=== PATIENT | male | born 1990 | race Two or more races ===

== ENCOUNTER 2018-04-23 09:17 | Emergency (ER) | payer SELFPAY ==
[~2018-04-23] VITALS: Ht 182.9 cm; Wt 142.9 kg
--- NOTE | 2018-04-23 09:20 | NUR ---
SHALOM FROM HOME , CC OF DYSURIA SINCE SATURDAY, HEMATURIA THIS AM WITH ABDOMINAL PAIN LLQ 3/10 MILD PAIN , WILL CONTINUE TO MONITOR
--- NOTE | 2018-04-23 09:44 | NUR ---
URINE SPECIMEN LABELED OBTAINED AND SENT TO LAB
[2018-04-23 09:50] LABS: APPEARANCE,URINE Cloudy (CLEAR); BILIRUBIN,URINE Negative (NEGATIVE); BLOOD, URINE Large Ery/uL (NEGATIVE); KETONES,URINE Negative (NEGATIVE); LEUKOCYTE ESTERASE ,URINE Small (NEGATIVE); NITRITE, URINE Negative (NEGATIVE); PH,URINE 5.5 (5.0-8.0); PROTEIN,URINE Trace mg/dl (NEGATIVE); UGLUCOSE Negative (NEGATIVE); UROBILINOGEN,URINE 0.2 EU/dL (0.2)
[2018-04-23] MEDS ORDERED: ACETAMINOPHEN ES 500 MG TABLET ONE (09:53)
[2018-04-23] MEDS: ACETAMINOPHEN ES 500 MG TABLET PO ONE (09:55)
[2018-04-23 09:56] LABS: COLOR,URINE Dark Yellow (YELLOW)
[2018-04-23 10:00] LABS: WBC,URINE 15-20 /HPF (0-3)
[2018-04-23 10:01] LABS: BACTERIA,URINE None seen /HPF (None Seen); RBC,URINE 80-100 /HPF (0-2); SQUAMOUS EPITHELIAL CELL,UR Few /HPF (None Seen)
[2018-04-23 10:07] LABS: BASOPHILS % (AUTO) 0.5 % (0.0-2.0); EOSINOPHILS % (AUTO) 0.8 % (0.0-6.0); HEMATOCRIT 42 % (39-51); HEMOGLOBIN 14.5 g/dL (13.5-17.5); LYMPHOCYTES # (AUTO) 1.5 /CMM (0.8-4.8); LYMPHOCYTES % (AUTO) 16.5 % (20.0-44.0); MEAN CORPUSCULAR HEMOGLOBIN 30 PG (26.0-33.0); MEAN CORPUSCULAR HGB CONC 35 g/dl (31.0-36.0); MEAN CORPUSCULAR VOLUME 86 fL (80-96); MONOCYTES # (AUTO) 0.4 /CMM (0.1-1.30); MONOCYTES % (AUTO) 4.1 % (2.0-12.0); NEUTROPHILS # (AUTO) 7.2 /CMM (1.8-8.9); NEUTROPHILS % (AUTO) 78.1 % (43.0-81.0); PLATELET COUNT (AUTO) 236 /CMM (150-450); RDW COEFFICIENT OF VARIATION 13.9 (11.5-15.0); RED BLOOD CELL COUNT(AUTO) 4.89 MIL/uL (4.5-6.0); WHITE BLOOD COUNT (AUTO) 9.3 K/uL (4.3-11.0)
[2018-04-23 10:13] LABS: CALCIUM, SERUM 9.1 mg/dL (8.5-10.1); CREATININE 0.7 mg/dL (0.6-1.3); POTASSIUM 4.1 mmol/L (3.5-5.1)
[2018-04-23 12:28] VITALS: BP 146/45
--- NOTE | 2018-04-23 12:29 | NUR ---
Patient discharged to home in stable condition. Written and verbal after care instructions given. Patient verbalizes understanding of instruction. VSS
== END 2018-04-23 12:29 | disposition home or self-care (01) ==
LOC: ER 09:19
DX: N34.2 Other urethritis (principal); B96.89 Other specified bacterial agents as the cause of diseases classified elsewhere; Z91.010 Allergy to peanuts; F10.10 Alcohol abuse, uncomplicated; F17.200 Nicotine dependence, unspecified, uncomplicated; Y90.9 Presence of alcohol in blood, level not specified
CPT/HCPCS: 36415; 80048-TC; 81000-TC; 85025-TC; A4606; Z7610